=== PATIENT | male | born 1995 | race Caucasian/White ===

== ENCOUNTER → 2019-01-15 | Outpatient (CLI) | payer OTHER ==
--- NOTE | 2019-01-15 16:12 | US ---
EXAMINATION TYPE: US abdomen complete DATE OF EXAM: 01/15/2019 COMPARISON: US, CT CLINICAL HISTORY: R10.11 right upper quadrant pain. Patient stated for past 2 months has increasing e pigastric and paraumbilical pain, but had symptoms x 1 year, noted after appendectomy 2017. Umbilical hernia repair 2017. Patient is slender and 6'3". EXAM MEASUREMENTS: Liver Length: 19.8 cm Gallbladder Wall: 0.2 cm CBD: 0.3 cm Spleen: 11.8 x 11.3 x 4.8 cm Right Kidney: 14.1 x 5.1 x 3.8 cm Left Kidney: 13.4 x 5.1 x 5.8 cm Pancreas: wnl Liver: appearance iswnl, larger than 18.0cm for tall patient Gallbladder: small hyperechoic wall focus (wall polyp) = 0.1 x 0.2 x 0.1cm and is seen in multiple v iews. Evidence for sonographic Bhatti's sign: no CBD: wnl Spleen: size is wnl; accessory spleen(s) noted at hilum with more prominent = 0.9 x 0.9 x 1.0cm Right Kidney: No hydronephrosis or masses seen Left Kidney: No hydronephrosis or masses seen Upper IVC: wnl Abd Aorta: wnl The liver is homogenous. The intrahepatic portion of the IVC and proximal abdominal aorta are within normal limits. There is no evidence of cholelithiasis. Common bile duct is unremarkable. The visu alized portions of the pancreas are homogenous. Kidneys are symmetric and free of hydronephrosis. N o renal lesions are seen. IMPRESSION: 1. gallbladder polyp. 2. Liver is at the upper limits of normal.
== END | disposition home or self-care (01) ==
LOC: RADUSWWP 15:07
PROVIDERS: ATTEND Internal Medicine
DX: K82.4 Cholesterolosis of gallbladder (principal)
CPT/HCPCS: 76700

== ENCOUNTER → 2019-01-28 | Outpatient (CLI) | payer OTHER ==
--- NOTE | 2019-01-28 10:34 | NM ---
EXAMINATION TYPE: NM hepatobiliary w EF DATE OF EXAM: 01/28/2019 COMPARISON: Ultrasound abdomen 01/15/2019 HISTORY: Right upper quadrant pain TECHNIQUE: After the intravenous administration of 4.99 mCi Tc 99m Mebrofenin hepatobiliary scintigra phy is performed. Immediate images post injection. FINDINGS: There is satisfactory initial accumulation of tracer by the liver. The gallbladder is visualized wit hin 6 minutes. The small bowel activity is noted on delayed imaging. At one hour 8 ounces of oral e nsure plus is given to mimic CCK and gallbladder ejection fraction is calculated at 76 %, in the norm al range. Therefore there is no scintigraphic evidence of cystic or common bile duct obstruction to suggest acute cholecystitis or gallbladder dyskinesia. IMPRESSION: Exam is within normal limits.
== END | disposition home or self-care (01) ==
LOC: RADNMMAIN 06:43
PROVIDERS: ATTEND Internal Medicine
DX: R10.11 Right upper quadrant pain (principal)
CPT/HCPCS: 78226; A9537

== ENCOUNTER 2019-02-07 09:47 | Inpatient (IN) | payer OTHER ==
--- NOTE | 2019-02-07 10:29 | XR ---
EXAMINATION TYPE: XR chest 1V portable DATE OF EXAM: 02/07/2019 COMPARISON: None INDICATION: Pain left-sided chest TECHNIQUE: Single frontal view of the chest is obtained. FINDINGS: The heart size is normal. The pulmonary vasculature is normal. The lungs are clear. No pneumothorax is evident. Left costophrenic angle is excluded from the [id number]. IMPRESSION: 1. No acute pulmonary process.
--- NOTE | 2019-02-07 10:40 | ED ---
Chest Pain HPI <Nabor Diane - Last Filed: 02/07/19 12:50> - General Source: patient Mode of arrival: ambulatory Limitations: no limitations <Shalonda Cristina - Last Filed: 02/07/19 13:00> - General Chief Complaint: Chest Pain Stated Complaint: Chest pain Time Seen by Provider: 02/07/19 10:00 - History of Present Illness Initial Comments: 23-year-old male presenting for chest pain x one day. He states that yesterday afternoon while he is in the car he felt sudden onset of a sharp chest pain in the left side of the chest. He states it was near the lower aspect of the anterior chest. . Patient states at times the pain radiates towards the back. He states he recently was recently evaluated for abdominal pain and had a HIDA scan. Patient denies any current back pain. Patient states the chest pain is constant in that location. Denies pressure, radiation to jaw, or to the UE. He states that this pain increases with rotation of the trunk. Patient states that initially he thought it may have been due to back issues. 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 Patient denies fevers, denies history of CAD less than age 31. Patient denies DM, HTN, HLD. Patient is an everyday smoker. (Shalonda Cristina) - Related Data Home Medications Medication Instructions Recorded Confirmed Acetaminophen Tab [Tylenol Tab] 1,000 mg PO Q6HR PRN 01/01/15 02/07/19 Pedi Multivit No.25/Folic Acid 300 mcg PO DAILY 02/07/19 02/07/19 [Flintstones Multivit Chew Tab] Allergies Allergy/AdvReac Type Severity Reaction Status Date / Time No Known Allergies Allergy Verified 02/07/19 10:04 Review of Systems ROS Other: All systems not noted in ROS Statement are negative. <Nabor Diane - Last Filed: 02/07/19 12:50> ROS Other: All systems not noted in ROS Statement are negative. <Shalonda Cristina - Last Filed: 02/07/19 13:00> ROS Statement: Those systems with pertinent positive or pertinent negative responses have been documented in the HPI. EKG Findings - EKG Comments: EKG Findings:: Ventricular rate 52 bpm, DE interval 174 ms, QRS buddhist 88 ms, QT/QTC 426/396. This is sinus bradycardia. There is no ST elevation or depression. No abnormal T-wave inversion. EKG was interprettd by myself and was reviewed by my attending Dr. Diane <Shalonda Cristina - Last Filed: 02/07/19 13:00> Past Medical History Past Medical History: No Reported History History of Any Multi-Drug Resistant Organisms: None Reported Past Surgical History: Adenoidectomy, Appendectomy, Ear Surgery, Hernia Repair Additional Past Surgical History / Comment(s): both eyes turned in, had surgery at age 7 yrs to correct. Past Anesthesia/Blood Transfusion Reactions: No Reported Reaction Past Psychological History: No Psychological Hx Reported Smoking Status: Current every day smoker Past Alcohol Use History: None Reported Past Drug Use History: None Reported - Past Family History Mother Family Medical History: Fibromyalgia Additional Family Medical History / Comment(s): hypoglycemia, hysterectomy, Hashimotos. Maternal uncle, blood clot in leg Father Additional Family Medical History / Comment(s): Heathy. Paternal grandfather blood clot in leg. Paternal grandfather heart attack Sister(s) Additional Family Medical History / Comment(s): both sisters healthy <Shalonda Cristina - Last Filed: 02/07/19 13:00> General Exam Limitations: no limitations <Shalonda Cristina - Last Filed: 02/07/19 13:00> - General Exam Comments Initial Comments: General: The patient is awake and alert, in no distress Eye: Pupils are equal, round and reactive to light, extra-ocular movements are intact. No nystagmus. There is normal conjunctiva bilaterally. No signs of icterus. Ears, nose, mouth and throat: There are moist mucous membranes and no oral lesions. Neck: The neck is supple, there is no tenderness or JVD. Cardiovascular: There is a regular rate and rhythm. No murmur, or gallop is appreciated. Split S1, S2. Appreciable rub, that increases in a flat position. Less prominent in a 45 degree angle. Does not cease with holding of the breat. Respiratory: Lungs are clear to auscultation, respirations are non-labored, breath sounds are equal. No wheezes, stridor, rales, or rhonchi. Gastrointestinal: Soft, non-distended, non-tender abdomen without masses or organomegaly noted. There is no rebound or guarding present. Musculoskeletal: Normal ROM, no tenderness. Strength 5/5. Sensation intact. Radial adn DP pulses equal bilaterally 2+. Neurological: A&O x 3. CN II-XII intact, There are no obvious motor or sensory deficits. Coordination appears grossly intact. Speech is normal. Skin: Skin is warm and dry and no rashes or lesions are noted. No LE edema. Psychiatric: Cooperative, appropriate mood & affect, normal judgment. (Shalonda Cristina) Course <Shalonda Cristina - Last Filed: 02/07/19 13:00> Vital Signs 02/07/19 02/07/19 02/07/19 09:55 10:31 11:17 Temperature 97.9 F Pulse Rate 66 60 Pulse Rate [ 59 L Guest Relations Coordinator ] Respiratory 18 18 Rate Blood Pressure 136/76 122/75 O2 Sat by Pulse 100 99 Oximetry - Reevaluation(s) Reevaluation #1: Due to patient having an unusual heart sound (not obvious murmur or rub), Dr. Hudson was consulted by Dr. Diane who will come to the ER to evaluate patient and auscultate heart. Laboratory studies are unremarkable at this time.Patient continues to appears well. 02/07/19 12:38 (Shalonda Cristina) Chest Pain [facility] <Nabor Diane - Last Filed: 02/07/19 12:50> <Shalonda Cristina - Last Filed: 02/07/19 13:00> - [facility] Medical decision making; as asked to look at this 23-year-old male with a complaint of discomfort for approximately 2 days to his left lower lateral rib cage area. 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 Examination finds patient puts 2 fingers over the area of discomfort. He is able to push and reproduce the pain. No radiation of pain. It does increase with deep breathing but decreases with splinting. No evidence of rash or bruising at this time. Auscultation of the heart did show split heart sounds. Difficult to discern a rub while breathing, but this did increase lung sounds. I discussed costochondritis and pleuritic pain with the patient. EKG was reviewed showing no evidence of any acute irregularity. Labs are all normal including a normal d-dimer. Chest x-ray; 1 view was done , reviewed as negative by radiologist. A left rib series has been requested. CRP is pending. CRP is reported to be negative. The extra x-rays to rule out rib fracture was reported as negative for acute rib fracture by Dr. Christianson. He recommends repeat chest x-ray in 7-10 days if pain persists. It appears the patient has pain at the costochondral junction at approximately the ninth or 10th rib on the left side. Stability of pericarditis was discussed with the patient. On-call baker second was called and provided a bedside consultation. His impression is early pericarditis. Patient be admitted with echo in the morning. Dr. Diane (Nabor Diane) 23-year-old male presenting for sharp chest pain that began yesterday. Patient has abnormal rub on examination. Concerning for pericarditis there is no ST elevation or depression noted on EKG. Troponin negative. D-dimer negative. Chest x-ray within normal limits. There are no overt signs of heart failure on physical examination. Blood pressures are equal in the upper extremities bilaterally. Patient was evaluated bedside by cardiology recommended admission with the impression currently of pericarditis and recommended nonsteroidal anti- inflammatory medications, Protonix for GI upset and a routine echo inpatient. Patient is agreeable with this admission. (Shalonda Cristina) Disposition <Nabor Diane - Last Filed: 02/07/19 12:50> Is patient prescribed a controlled substance at d/c from ED?: No Time of Disposition: 12:45 Decision to Admit Reason: Admit from EC Decision Date: 02/07/19 Decision Time: 12:45 <Shalonda Cirstina - Last Filed: 02/07/19 13:00> Clinical Impression: Atypical chest pain, Pericarditis Disposition: ADMITTED IP TO THIS HOSP Condition: Stable Referrals: Flor Richards MD [Primary Care Provider] - 1-2 days
[2019-02-07 10:59] LABS: ALT 23 U/L (21-72); AST 16 U/L (17-59); African American GFR (CKD) >90 (>60 ml/min/1.73 sqM); Albumin 4.1 g/dL (3.5-5.0); Alkaline Phosphatase 49 U/L (38-126); Anion Gap 9 mmol/L; Blood Urea Nitrogen 11 mg/dL (9-20); Calcium 9.3 mg/dL (8.4-10.2); Carbon Dioxide 28 mmol/L (22-30); Chloride 105 mmol/L (98-107); Glucose 99 mg/dL (74-99); Non-African American GFR(CKD) >90 (>60 ml/min/1.73 sqM); Potassium 4.6 mmol/L (3.5-5.1); Sodium 142 mmol/L (137-145); Total Bilirubin 0.4 mg/dL (0.2-1.3); Total Protein 6.9 g/dL (6.3-8.2)
[2019-02-07 11:07] LABS: Basophils % (A) 0 %; Eosinophils # (A) 0.2 k/uL (0-0.7); Eosinophils % (A) 3 %; HCT 45.1 % (39.0-53.0); HGB 14.8 gm/dL (13.0-17.5); Lymphocytes # (A) 1.9 k/uL (1.0-4.8); Lymphocytes % (A) 23 %; MCH 32.8 pg (25.0-35.0); MCHC 32.9 g/dL (31.0-37.0); MCV 99.7 fL (80.0-100.0); Monocytes # (A) 0.4 k/uL (0-1.0); Monocytes % (A) 5 %; Neutrophils # (A) 5.6 k/uL (1.3-7.7); Neutrophils % (A) 68 %; Platelet Count 269 k/uL (150-450); RBC 4.52 m/uL (4.30-5.90); RDW 13.8 % (11.5-15.5); WBC 8.3 k/uL (3.8-10.6)
--- NOTE | 2019-02-07 11:55 | XR ---
EXAMINATION TYPE: XR ribs LT DATE OF EXAM: 02/07/2019 COMPARISON: None HISTORY: Left rib pain TECHNIQUE: Two-view left RIBS FINDINGS: No displaced fractures are evident. No pneumothorax is evident. IMPRESSION: 1. Normal left ribs. Follow-up can be performed 7-10 days from acute trauma for continued pain.
[2019-02-07] MEDS ORDERED: IBUPROFEN 600 MG TAB PO STA (12:47)
--- NOTE | 2019-02-07 12:58 | P.CRDCN ---
History of Present Illness Consult date: 02/07/19 Chief complaint: Chest pain History of present illness: This is a pleasant 23-year-old gentleman presented to the emergency room complaining of chest discomfort. He was in his usual state of health until last night when he started experiencing discomfort in the lower mid chest, described as a sharp kind of discomfort, without any radiation to the arm or neck or shoulders, and without any associated symptoms of shortness of breath, sweating, dizziness, or syncope. The patient stated clearly that the discomfort is worse if he lay flat in bed and better once he sits and lean forward. No associated symptoms of fever or chills. No nausea or vomiting. No recent history of upper respiratory infection. No contact with anybody who was sick or infected recently. 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 The patient is not aware of any prior congenital heart disease. On physical examination he does have pericardial rub and also split into second heart sounds. There is also ejection systolic murmur was noted. The chest x-ray and rib x-ray did not show any acute abnormalities. The EKG showed sinus rhythm without any ST or T-wave abnormalities consistent with pericarditis or ischemia. PE was ruled out by a normal d-dimer. The first set of troponin came in to be unremarkable. Past Medical History Past Medical History: No Reported History History of Any Multi-Drug Resistant Organisms: None Reported Past Surgical History: Adenoidectomy, Appendectomy, Ear Surgery, Hernia Repair Additional Past Surgical History / Comment(s): both eyes turned in, had surgery at age 7 yrs to correct. Past Anesthesia/Blood Transfusion Reactions: No Reported Reaction Past Psychological History: No Psychological Hx Reported Smoking Status: Current every day smoker Past Alcohol Use History: None Reported Past Drug Use History: None Reported - Past Family History Mother Family Medical History: Fibromyalgia Additional Family Medical History / Comment(s): hypoglycemia, hysterectomy, Hashimotos. Maternal uncle, blood clot in leg Father Additional Family Medical History / Comment(s): Heathy. Paternal grandfather blood clot in leg. Paternal grandfather heart attack Sister(s) Additional Family Medical History / Comment(s): both sisters healthy Medications and Allergies Home Medications Medication Instructions Recorded Confirmed Type Acetaminophen Tab [Tylenol Tab] 1,000 mg PO Q6HR PRN 01/01/15 02/07/19 History Pedi Multivit No.25/Folic Acid 300 mcg PO DAILY 02/07/19 02/07/19 History [Flintstones Multivit Chew Tab] Allergies Allergy/AdvReac Type Severity Reaction Status Date / Time No Known Allergies Allergy Verified 02/07/19 10:04 Physical Exam Vitals: Vital Signs Temp Pulse Pulse Resp BP Pulse Ox 02/07/19 11:17 60 18 122/75 99 02/07/19 10:31 59 L 02/07/19 09:55 97.9 F 66 18 136/76 100 Intake and Output 02/06/19 02/07/19 02/07/19 22:59 06:59 14:59 Other: Weight 81.647 kg - Constitutional General appearance: no acute distress - Respiratory Respiratory: bilateral: CTA - Cardiovascular Rhythm: regular Heart sounds: normal: S1, S2 Abnormal Heart Sounds: systolic murmur Results 02/07/19 10:24 02/07/19 10:24 Cardiac Enzymes 02/07/19 02/07/19 Range/Units 10:24 10:24 AST 16 L (17-59) U/L Troponin I <0.012 (0.000-0.034) ng/mL CBC 02/07/19 Range/Units 10:24 WBC 8.3 (3.8-10.6) k/uL RBC 4.52 (4.30-5.90) m/uL Hgb 14.8 (13.0-17.5) gm/dL Hct 45.1 (39.0-53.0) % Plt Count 269 (150-450) k/uL Comprehensive Metabolic Panel 02/07/19 Range/Units 10:24 Sodium 142 (137-145) mmol/L Potassium 4.6 (3.5-5.1) mmol/L Chloride 105 (98-107) mmol/L Carbon Dioxide 28 (22-30) mmol/L BUN 11 (9-20) mg/dL Creatinine 0.65 L (0.66-1.25) mg/dL Glucose 99 (74-99) mg/dL Calcium 9.3 (8.4-10.2) mg/dL AST 16 L (17-59) U/L ALT 23 (21-72) U/L Alkaline Phosphatase 49 (38-126) U/L Total Protein 6.9 (6.3-8.2) g/dL Albumin 4.1 (3.5-5.0) g/dL Current Medications Generic Name Dose Route Start Last Admin Trade Name Freq PRN Reason Stop Dose Admin Sodium Chloride 1,000 mls @ 20 mls/hr 02/07/19 13:00 Saline 0.9% IV .Q24H SANTIAGO Ibuprofen 600 mg 02/07/19 16:00 Motrin PO TID SANTIAGO Pantoprazole Sodium 40 mg 02/08/19 09:00 Protonix IVP DAILY SANTIAGO Intake and Output 02/06/19 02/07/19 02/07/19 22:59 06:59 14:59 Other: Weight 81.647 kg Patient Weight 02/08/19 06:59 Weight 81.647 kg 02/07/19 10:24 02/07/19 10:24 Assessment and Plan Assessment: Assessment #1 atypical/pleuritic chest discomfort consistent with likely pericarditis Plan #1 acute coronary syndrome and PE were ruled out #2 obtain a sed rate #3 start the patient on nonsteroid anti-inflammatory as well as colchicine as well as PPI #4 obtain an echocardiogram was Doppler #5 keep the patient for 24-hour observation. Thank you for allowing us participate in his care
[2019-02-07] MEDS ORDERED: SODIUM CHLORIDE 0.9% 1,000 ML IV SCH (13:00)
[2019-02-07 13:47] VITALS: BMI 23.3
[2019-02-07] MEDS ORDERED: ACETAMINOPHEN TAB 500 MG TAB PO PRN (14:07)
[2019-02-07] MEDS ORDERED: ALPRAZolam 0.25 MG TAB PO PRN (14:08)
[2019-02-07] MEDS ORDERED: HYDROmorphone 0.5 MG/0.5 ML SYRINGE IVP PRN (14:08)
[2019-02-07] MEDS ORDERED: TEMAZEPAM 15 MG CAP PO PRN (14:08)
--- NOTE | 2019-02-07 16:09 | HP ---
HISTORY AND PHYSICAL DATE OF SERVICE: 02/07/2019 CHIEF COMPLAINT: Chest pain. HISTORY OF PRESENT ILLNESS: This 23-year-old gentleman with a past medical history of no significant medical issues except adenoidectomy, appendectomy being followed by Dr. Richards in the outpatient setting comes in complaining of chest pain. The patient's chest pain since yesterday which are sharp in character, anterior part and left side of the chest which is increasing with respiration and the patient came to [facility] and admitted for evaluation and treatment. Followed by Dr. Richards in the outpatient setting. The patient had abdominal pain evaluation and HIDA scan also. Evaluation in the ER showed normal CBC and cardiology evaluation in progress. Rib x-ray is normal. EKG showed minimal ST changes and possibly pericarditis was also considered. There is no history of fever, rigors. No history of headache loss of conscious or seizures at this time. Pericardial rub was noted on exam. There is no history of fever or rigors. PAST MEDICAL HISTORY: History of appendectomy, adenoidectomy surgeries. MEDICATIONS: 1. Vitamins 1 p.o. daily. 2. Tylenol p.r.n. ALLERGIES: None. FAMILY HISTORY: History of fibromyalgia, hysterectomy, Sol's thyroiditis in family, DVT. SOCIAL HISTORY: History of smoking. No history of alcohol intake. REVIEW OF SYSTEMS: ENT: No diminished vision. No diminished hearing. CARDIOVASCULAR: As mentioned earlier. GI: No nausea. : No dysuria. NERVOUS SYSTEM: No numbness or weakness. ALLERGY/IMMUNOLOGY: No asthma or hayfever. MUSCULOSKELETAL: As mentioned earlier. HEMATOLOGY: No history of anemia. ENDOCRINE: No history of diabetes or hypothyroid. CONSTITUTIONAL: As mentioned earlier. DERMATOLOGY: Negative. RHEUMATOLOGY: Negative. PSYCHIATRIC: As mentioned earlier. PHYSICAL EXAMINATION: Alert and oriented x3. Pulse is 49, blood pressure 170/68, respiration 18, temperature 97.9, pulse ox 98% on room air. HEENT: Conjunctivae normal. NECK: No jugular venous distention. CARDIOVASCULAR: S1, S2 muffled. Possible pericardial rub present. RESPIRATORY: Breath sounds diminished in the bases. No rhonchi. No crackles. ABDOMEN: Soft, nontender. No mass palpable. LEGS: No edema, no swelling. NERVOUS SYSTEM: Higher function mentioned earlier. Moves all 4 limbs. No focal motor or sensory deficits. LYMPHATICS: No lymphadenopathy in the neck, axillae, groin. SKIN: No ulcer, rashes. JOINTS: No active deforming arthropathy. LABS: CBC within normal limits. Sodium 142, potassium 4.6, AST 16, lipase 14. ASSESSMENT: 1. Chest pain possibly pericarditis or pleural pericarditis. 2. History of appendectomy. 3. History of adenoidectomy. 4. History of nicotine dependence. RECOMMENDATIONS AND DISCUSSION: This is a 23-year-old gentleman who presented with multiple medical issues, we will monitor the patient closely. Symptomatic treatment will be provided. Otherwise, I would recommend a 2D echo with Doppler, cardiology consultation. Prognosis guarded because of multiple complex medical issues. Further recommendations to follow. See orders for details. Copy of this dictation is forwarded to Dr. Richards's office. RODNEY / STAN: [id number] /
[2019-02-07] MEDS: IBUPROFEN 600 MG TAB PO SCH ×2 (16:35→22:36)
[2019-02-07 17:51] LABS: Appearance,Urine Clear (Clear); Bilirubin,Urine Negative (Negative); Blood,Urine Negative (Negative); Color,Urine Yellow; Glucose,Urine (UA) Negative (Negative); Ketones,Urine Negative (Negative); Leukocyte Esterase,Urine Negative (Negative); Nitrite,Urine Negative (Negative); Protein,Urine Negative (Negative); Specific Gravity,Urine 1.013 (1.001-1.035); Urobilinogen,Urine <2.0 mg/dL (<2.0)
[2019-02-07 18:08] LABS: Amphetamine Screen,Urine Not Detected (NotDetected); Barbiturate Screen,Urine Not Detected (NotDetected); Benzodiazepines Screen,Urine Not Detected (NotDetected); Cocaine Screen,Urine Not Detected (NotDetected); Methadone Screen, Urine Not Detected (NotDetected); Opiate Screen,Urine Not Detected (NotDetected); Oxycodone Screen, Urine Not Detected (NotDetected); Phencyclidine Screen,Urine Not Detected (NotDetected); Tricyclic Antidepressant,Urine Not Detected (NotDetected); Urn Cannabinoid Scrn Detected (NotDetected)
[2019-02-07] MEDS: HYDROcodone/APAP 5-325MG 1 EACH TAB PO PRN (19:39)
[2019-02-08] MEDS: HYDROcodone/APAP 5-325MG 1 EACH TAB PO PRN (00:46)
[2019-02-08 07:03] LABS: Basophils % (A) 1 %; Eosinophils # (A) 0.2 k/uL (0-0.7); Eosinophils % (A) 3 %; HCT 41.6 % (39.0-53.0); HGB 13.7 gm/dL (13.0-17.5); Lymphocytes # (A) 1.8 k/uL (1.0-4.8); Lymphocytes % (A) 31 %; MCH 33.2 pg (25.0-35.0); MCV 100.8 fL (80.0-100.0); Mean Platelet Volume 6.9; Monocytes # (A) 0.4 k/uL (0-1.0); Monocytes % (A) 7 %; Neutrophils # (A) 3.3 k/uL (1.3-7.7); Neutrophils % (A) 56 %; Platelet Count 215 k/uL (150-450); RBC 4.13 m/uL (4.30-5.90); RDW 12.8 % (11.5-15.5); WBC 5.9 k/uL (3.8-10.6)
[2019-02-08 07:23] LABS: African American GFR (CKD) >90 (>60 ml/min/1.73 sqM); Anion Gap 5 mmol/L; Blood Urea Nitrogen 12 mg/dL (9-20); Calcium 8.9 mg/dL (8.4-10.2); Carbon Dioxide 29 mmol/L (22-30); Chloride 106 mmol/L (98-107); Glucose 94 mg/dL (74-99); Non-African American GFR(CKD) >90 (>60 ml/min/1.73 sqM); Potassium 4.3 mmol/L (3.5-5.1); Sodium 140 mmol/L (137-145)
[2019-02-08 07:33] VITALS: PULSE 47; RESP 17
[2019-02-08] MEDS ORDERED: MULTIVITAMINS, PEDIATRIC 1 EACH CHEWABLE PO SCH (09:00)
[2019-02-08] MEDS ORDERED: PANTOPRAZOLE 40 MG/10 ML VIAL IVP SCH (09:00)
[2019-02-08] MEDS ORDERED: COLCHICINE 0.6 MG EACH PO SCH (10:15)
--- NOTE | 2019-02-08 10:54 | P.PN ---
Subjective This is a pleasant 23-year-old male with no significant previous medical history other than chronic daily nicotine dependence. He continues to experience discomfort in the left precordial region described as sharp with no radiation. He has been started on anti-inflammatory regimen and states this is not relieving his pain at all. He is seen and examined resting comfortably lying flat in bed in no acute distress. Laboratory data reviewed, WBC 5.9, hemoglobin 13.7, platelets 215, ESR 3, sodium 140, potassium 4.3, creatinine 0.75, C-reactive protein less than 5, cardiac enzymes negative 1. Blood pressure 100/65 heart rate 47 afebrile maintaining oxygen saturation on room air. Currently maintained on ibuprofen 600 mg 3 times a day and Protonix 40 mg daily. GENERAL: Well-appearing, well-nourished and in no acute distress. NECK: Supple without JVD or thyromegaly. LUNGS: Breath sounds clear to auscultation bilaterally. Respiration equal and unlabored. No wheezes, rales or rhonchi. HEART: Regular rate and rhythm without murmurs, rubs or gallops. S1 and S2 heard. EXTREMITIES: Normal range of motion, no edema. No clubbing or cyanosis. Peripheral pulses intact. ASSESSMENT Acute pericarditis Chronic nicotine dependence PLAN Change from ibuprofen to colchicine 0.6 mg BID. Will follow up with echo prior to discharge. Follow up with Dr. Palomino in 2 weeks. Nurse Practitioner note has been reviewed, I agree with a documented findings and plan of care. Patient was seen and examined. Objective - Vital Signs Vital signs: Vital Signs Temp 97.7 F 02/08/19 07:32 Pulse 47 L 02/08/19 07:32 Resp 17 02/08/19 07:32 BP 100/65 02/08/19 07:32 Pulse Ox 99 02/08/19 07:32 Intake & Output 02/07/19 02/08/19 02/08/19 18:59 06:59 18:59 Intake Total 240 200 Output Total 200 Balance 40 200 Weight 81.647 kg Intake: Oral 240 200 Output: Urine 200 Other: Voiding Method Toilet Toilet # Voids 1 - Labs CBC & Chem 7: 02/08/19 06:47 02/08/19 06:47 Labs: Abnormal Lab Results - Last 24 Hours (Table) 02/07/19 02/07/1902/08/19 Range/Units 10:24 17:45 06:47 RBC 4.13 L (4.30-5.90) m/uL MCV 100.8 H (80.0-100.0) fL Creatinine 0.65 L (0.66-1.25) mg/dL AST 16 L (17-59) U/L Lipase 14 L (23-300) U/L U Marijuana (THC) Screen Detected H (NotDetected)
[2019-02-08 11:53] VITALS: BP 109/71; TEMP 98
--- NOTE | 2019-02-08 15:03 | ECHOF ---
Referral Reason:cp MEASUREMENTS -------- HEIGHT: 190.5 cm WEIGHT: 81.6 kg BP: 100/65 IVSd: 1.0 cm (0.6 - 1.1) LVIDd: 4.9 cm (3.9 - 5.3) LVPWd: 1.0 cm (0.6 - 1.1) IVSs: 1.2 cm LVIDs: 3.2 cm LVPWs: 1.4 cm RVIDd: 3.5 cm (< 3.3) LAESV Index (A-L): 36.51 ml/m Ao Diam: 3.7 cm (2.0 - 3.7) LA Diam: 3.4 cm (2.7 - 3.8) AV Cusp: 2.8 cm (1.5 - 2.6) EPSS: 0.5 cm MV E Curly: 1.24 m/s MV DecT: 202 ms MV A Curly: 0.32 m/s MV E/A Ratio: 3.90 RAP: 10.00* mmHg RVSP: 36.12 mmHg MV EF SLOPE: 149.20 mm/s (70 - 150) MV EXCURSION: 1.33 cm (> 18.000) FINDINGS -------- Resting bradycardia (HR<60bpm). This was a technically adequate study. The left ventricular size is normal. Left ventricular wall thickness is normal. Overall left vent ricular systolic function is normal with, an EF between 55 - 60 %. The diastolic filling pattern is normal for the age of the patient. The right ventricle is mildly enlarged. Left atrium is moderately dilated by volume. The right atrial size is normal. Interatrial and interventricular septum intact. The aortic valve is trileaflet and appears structurally normal. There is no evidence of aortic regu rgitation. There is no evidence of aortic stenosis. The mitral valve is normal. Moderate mitral regurgitation is present. Mild tricuspid regurgitation present. There is mild pulmonary hypertension. The right ventricular systolic pressure, as measured by Doppler, is 36.12mmHg. There is no pulmonic regurgitation present. The aortic root size is normal. The inferior vena cava is moderately dilated. There is no pericardial effusion. The pericardium appears to be thickened. pROMINENT ANTERIOR AND P OSTERIOR PERICARDIAL STRIPE CONCLUSIONS -------- 1. Resting bradycardia (HR<60bpm). 2. This was a technically adequate study. 3. The left ventricular size is normal. 4. Left ventricular wall thickness is normal. 5. Overall left ventricular systolic function is normal with, an EF between 55 - 60 %. 6. The diastolic filling pattern is normal for the age of the patient. 7. The right ventricle is mildly enlarged. 8. Left atrium is moderately dilated by volume. 9. The right atrial size is normal. 10. Interatrial and interventricular septum intact. 11. The aortic valve is trileaflet and appears structurally normal. 12. There is no evidence of aortic regurgitation. 13. There is no evidence of aortic stenosis. 14. The mitral valve is normal. 15. Moderate mitral regurgitation is present. 16. Mild tricuspid regurgitation present. 17. There is mild pulmonary hypertension. 18. The right ventricular systolic pressure, as measured by Doppler, is 36.12mmHg. 19. There is no pulmonic regurgitation present. 20. The aortic root size is normal. 21. The inferior vena cava is moderately dilated. 22. There is no pericardial effusion. 23. The pericardium appears to be thickened. GREASE MACHINE WORKER: Dalia Angel RDCS
--- NOTE | 2019-02-09 00:04 | DS ---
DISCHARGE SUMMARY FINAL DIAGNOSES: 1. Chest pain, possible acute pericarditis. 2. History of appendectomy. 3. History of adenoidectomy. 4. History of nicotine abuse. DISCHARGE DISPOSITION: The patient will be discharged in stable condition with guarded prognosis. HISTORY OF PRESENT ILLNESS: This 23-year-old gentleman with a past medical history of multiple medical problems was admitted with history of chest pain, being followed by Dr. Richards in the outpatient setting, was thought to have acute pericarditis. A 2D echo showed no evidence of any pericardial effusion. The pericardium appears to be thickened. On exam, vitals signs are stable. Cardiovascular: S1, S2. Abdomen soft. Nervous System: No focal deficits. DISCHARGE ADVICE AND MEDICATIONS: 1. Discharge diet is cardiac diet. 2. Activity limited until followup. 3. Follow up with Dr. Richards in 2-3 days. 4. Follow up with Dr. Palomino as recommended. DISCHARGE MEDICATIONS: 1. Colchicine 0.6 p.o. b.i.d. for 1 week. 2. Tylenol p.r.n. 3. Multivitamins 1 p.o. daily. Once again, patient being discharged in a stable condition with guarded prognosis. MMODL / IJN: [id number] /
== END 2019-02-08 15:38 | disposition home or self-care (01) | DRG 316 ==
LOC: EC 09:47 → 1SOBS 12:51 → OBSVTOIN 02-08 09:37
PROVIDERS: ADMIT Hospitalist; ATTEND Hospitalist
DX: I30.9 Acute pericarditis, unspecified (principal); F17.200 Nicotine dependence, unspecified, uncomplicated; Z79.899 Other long term (current) drug therapy; Z82.49 Family history of ischemic heart disease and other diseases of the circulatory system; Z90.49 Acquired absence of other specified parts of digestive tract; Z90.89 Acquired absence of other organs; Z98.890 Other specified postprocedural states; Z83.49 Family history of other endocrine, nutritional and metabolic diseases
CPT/HCPCS: 36415; 71045; 80048; 80053; 80306; 81003; 83690; 84484; 85025; 85379; 85652; 86140; 86658; 93005; 93306; 99285

== ENCOUNTER 2020-08-25 00:16 | Emergency (ER) | payer OTHER ==
--- NOTE | 2020-08-25 00:58 | XR ---
EXAM: XR Chest, 2 Views CLINICAL HISTORY: ITS.REASON XR Reason: Chest pain TECHNIQUE: Frontal and lateral views of the chest. COMPARISON: February 07, 2019 FINDINGS: Lungs: Unremarkable. No consolidation. Pleural space: Unremarkable. No pneumothorax. Heart: Unremarkable. No cardiomegaly. Mediastinum: Unremarkable. Bones/joints: Unremarkable. IMPRESSION: Normal chest x-rays.
--- NOTE | 2020-08-25 01:26 | ED ---
General Adult HPI - General Chief complaint: Chest Pain Stated complaint: Chest Pain, Leg pain Time Seen by Provider: 08/25/20 00:22 Source: patient, family Mode of arrival: ambulatory Limitations: no limitations - History of Present Illness Initial comments: 24-year-old male patient with past medical history significant for pericarditis presents to the emergency department today for evaluation of left leg pain and cramping as well as intermittent chest pain. Patient states his been having pain to the leg intermittently over the last week. States the pain worsens at rest and gets better with movement. States the pain is pretty constant today and worse over his left calf. States he has intermittent swelling to the left knee. Denies any known injury. States his chest pain started today. States there are sharp stabbing pains the last just for a few seconds. States this happens several times at the day today. Denies any shortness of breath. Denies any increased pain with breathing. Denies dizziness or weakness. Denies nausea or vomiting. Denies any abdominal pain. Patient states he does have a family history of blood clot he is very concerned this is going out of the left leg. He denies any recent long car rides. Denies hormonal medication use. Denies personal history of blood clot. Patient denies any recent rash, fever, chills, cough, abdominal pain, nausea, vomiting, diarrhea, constipation, back pain, numbness, tingling, hematuria, dysuria, urinary urgency, urinary frequency, headache, visual changes, or any other complaints. - Related Data Home Medications Medication Instructions Recorded Confirmed Acetaminophen Tab [Tylenol] 1,000 mg PO Q6HR PRN 01/01/15 02/07/19 Pedi Multivit No.25/Folic Acid 300 mcg PO DAILY 02/07/19 02/07/19 [Flintstones Multivit Chew Tab] Previous Rx's Medication Instructions Recorded Colchicine [Colcrys] 0.6 mg PO BID #14 each 02/08/19 Allergies Allergy/AdvReac Type Severity Reaction Status Date / Time No Known Allergies Allergy Verified 08/25/20 00:21 Review of Systems ROS Statement: Those systems with pertinent positive or pertinent negative responses have been documented in the HPI. ROS Other: All systems not noted in ROS Statement are negative. Past Medical History Past Medical History: No Reported History Additional Past Medical History / Comment(s): pericarditis History of Any Multi-Drug Resistant Organisms: None Reported Past Surgical History: Adenoidectomy, Appendectomy, Ear Surgery, Hernia Repair Additional Past Surgical History / Comment(s): both eyes turned in, had surgery at age 7 yrs to correct. Past Anesthesia/Blood Transfusion Reactions: No Reported Reaction Past Psychological History: No Psychological Hx Reported Smoking Status: Never smoker Past Alcohol Use History: None Reported Past Drug Use History: None Reported - Past Family History Mother Family Medical History: Fibromyalgia Additional Family Medical History / Comment(s): hypoglycemia, hysterectomy, Hashimotos. Maternal uncle, blood clot in leg Father Additional Family Medical History / Comment(s): Heathy. Paternal grandfather blood clot in leg. Paternal grandfather heart attack Sister(s) Additional Family Medical History / Comment(s): both sisters healthy General Exam Limitations: no limitations General appearance: alert, in no apparent distress, other (This is a well- developed, well-nourished adult male patient in no acute distress. Vital signs upon presentation are temperature 97.6F, pulse 60, respirations 22, blood pressure 149/73, pulse ox 98% on room air.) Respiratory exam: Present: normal lung sounds bilaterally. Absent: respiratory distress, wheezes, rales, rhonchi, stridor Cardiovascular Exam: Present: regular rate, normal rhythm, normal heart sounds. Absent: systolic murmur, diastolic murmur, rubs, gallop, clicks GI/Abdominal exam: Present: soft, normal bowel sounds. Absent: distended, tenderness, guarding, rebound, rigid Extremities exam: Present: normal inspection, full ROM, normal capillary refill, other (Skin to the left leg is pink, warm, dry. Cap refill less than 3 seconds. Pedal and posttibial pulses are 2+ and equal bilaterally.). Absent: tenderness, pedal edema, joint swelling, calf tenderness Neurological exam: Present: alert, oriented X3, CN II-XII intact Psychiatric exam: Present: normal affect, normal mood Skin exam: Present: warm, dry, intact, normal color. Absent: rash Course Vital Signs 08/25/20 00:17 Temperature 97.6 F Pulse Rate 60 Respiratory 22 Rate Blood Pressure 149/73 O2 Sat by Pulse 98 Oximetry EKG Findings - EKG Comments: EKG Findings:: EKG obtained at 00 33 shows sinus bradycardia with a ventricular rate of 58, P return of a 156, QRS duration 96, QT 424, QTC 416. No evidence of ST elevation or depression. Medical Decision Making - Medical Decision Making 24-year-old male patient presents to the emergency department today for evaluation of left leg pain and cramping over the calf, foot, left hip. Also reporting intermittent sharp chest pains lasting a few seconds at a time. Neurovascular status was intact. Leg appears normal. Pedal and posttibial pulses. Chest x-ray is negative. I did discuss signs and results with the patient. Be discharged pop his primary care physician for recheck in 1-2 days. He verbalizes understanding and agrees with this plan. Case discussed with my attending Dr. Cantrell. - Radiology Data Radiology results: report reviewed, image reviewed Two-view x-ray of the chest is obtained. Report is reviewed in its entirety. Impression by Dr. Saxena shows normal chest x-rays. Ultrasound of the left lower extremity was obtained. Report was reviewed in its entirety. Impression by Dr. Saxena shows normal left lower extremity duplex venous ultrasound. Disposition Clinical Impression: Left leg pain, Chest pain Disposition: HOME SELF-CARE Condition: Good Instructions (If sedation given, give patient instructions): Chest Pain (ED), Leg Cramps (ED) Additional Instructions: Follow-up with her primary care physician for recheck in 1-2 days. Return to the emergency department for any new, worsening, or concerning symptoms. Is patient prescribed a controlled substance at d/c from ED?: No Referrals: Flor Richards MD [Primary Care Provider] - 1-2 days Time of Disposition: 01:37
--- NOTE | 2020-08-25 01:32 | US ---
EXAM: US Duplex Left Lower Extremity Veins CLINICAL HISTORY: ITS.REASON US Reason: Leg pain, cramping TECHNIQUE: Real-time duplex ultrasound scan of the left lower extremity veins integrating B-mode two-dimensional vascular structure, Doppler spectral analysis, color flow Doppler imaging and compression. COMPARISON: No relevant prior studies available. FINDINGS: Deep veins: Unremarkable. No DVT in the visualized common femoral, femoral, proximal deep femoral or popliteal veins. The veins demonstrate normal color flow, are normally compressible, with normal phasic flow and/or augmentation response. Superficial veins: Unremarkable. No thrombus in the visualized great saphenous vein. Soft tissues: No acute findings. No popliteal cyst. IMPRESSION: Normal left lower extremity duplex venous ultrasound.
[2020-08-25 02:18] VITALS: BP 134/91; PULSE 82; RESP 18; TEMP 97.7
== END 2020-08-25 02:05 | disposition home or self-care (01) ==
LOC: EC 00:16
DX: R07.9 Chest pain, unspecified (principal); M79.662 Pain in left lower leg; Z90.49 Acquired absence of other specified parts of digestive tract; Z90.89 Acquired absence of other organs
CPT/HCPCS: 71046; 93005; 99285

== ENCOUNTER 2024-01-08 13:59 | Emergency (ER) | payer OTHER ==
[2024-01-08 14:11] VITALS: TEMP 97.2
--- NOTE | 2024-01-08 14:40 | ED ---
General Adult HPI - General Chief complaint: Abdominal Pain Stated complaint: L Rib Pain Time Seen by Provider: 01/08/24 14:38 Source: patient, RN notes reviewed Mode of arrival: ambulatory Limitations: no limitations - History of Present Illness Initial comments: 28-year-old male presented to ER with a chief complaint of left-sided rib pain. Patient states he was leaning over a truck bed 2 days ago and heard a "pop". He states since then he has been experiencing left-sided rib pain worse with inspiration and laying flat. He does report mild shortness of breath and feeling like he cannot take a deep breath due to the pain. He denies any chest pain, abdominal pain or other complaints. - Related Data Home Medications Medication Instructions Recorded Confirmed Acetaminophen Tab [Tylenol] 1,000 mg PO Q6HR PRN 01/01/15 02/07/19 Pedi Multivit No.25/Folic Acid 300 mcg PO DAILY 02/07/19 02/07/19 [Flintstones Multivit Chew Tab] Previous Rx's Medication Instructions Recorded Colchicine [Colcrys] 0.6 mg PO BID #14 each 02/08/19 Lidocaine 5% Patch [Lidoderm] 1 patch TOPICAL DAILY #30 patch 01/08/24 Allergies Allergy/AdvReac Type Severity Reaction Status Date / Time No Known Allergies Allergy Verified 01/08/24 14:09 Review of Systems ROS Statement: Those systems with pertinent positive or pertinent negative responses have been documented in the HPI. ROS Other: All systems not noted in ROS Statement are negative. Past Medical History Past Medical History: No Reported History Additional Past Medical History / Comment(s): pericarditis History of Any Multi-Drug Resistant Organisms: None Reported Past Surgical History: Adenoidectomy, Appendectomy, Ear Surgery, Hernia Repair Additional Past Surgical History / Comment(s): both eyes turned in, had surgery at age 7 yrs to correct. Past Anesthesia/Blood Transfusion Reactions: No Reported Reaction Past Psychological History: No Psychological Hx Reported Smoking Status: Never smoker Past Alcohol Use History: None Reported Past Drug Use History: None Reported - Past Family History Mother Family Medical History: Fibromyalgia Additional Family Medical History / Comment(s): hypoglycemia, hysterectomy, Hashimotos. Maternal uncle, blood clot in leg Father Additional Family Medical History / Comment(s): Heathy. Paternal grandfather blood clot in leg. Paternal grandfather heart attack Sister(s) Additional Family Medical History / Comment(s): both sisters healthy General Exam Limitations: no limitations General appearance: alert, in no apparent distress Respiratory exam: Present: normal lung sounds bilaterally, chest wall tenderness (Left anterior ribs. Symmetrical wall motion with inspiration and expiration. No erythema, bruising, wounds or rashes.). Absent: respiratory distress, wheezes, rales, rhonchi, stridor Cardiovascular Exam: Present: regular rate, normal rhythm, normal heart sounds. Absent: systolic murmur, diastolic murmur, rubs, gallop, clicks Skin exam: Present: warm, dry, intact, normal color. Absent: rash Course Vital Signs 01/08/24 01/08/24 14:09 15:59 Temperature 97.2 F L Pulse Rate 50 L 80 Respiratory 16 18 Rate Blood Pressure 158/79 136/78 O2 Sat by Pulse 99 98 Oximetry Medical Decision Making - Medical Decision Making Was pt. sent in by a medical professional or institution (, PA, HARDWARE DEVELOPER, urgent care, hospital, or residential...) When possible be specific @ -No Did you speak to anyone other than the patient for history (EMS, parent, family, police, friend...)? What history was obtained from this source @ -No Did you review nursing and triage notes (agree or disagree)? Why? @ -I reviewed and agree with nursing and triage notes Were old charts reviewed (outside hosp., previous admission, EMS record, old EKG, old radiological studies, urgent care reports/EKG's, residential records)? Report findings @ -No old charts were reviewed Differential Diagnosis (chest pain, altered mental status, abdominal pain women, abdominal pain men, vaginal bleeding, weakness, fever, dyspnea, syncope, headache, dizziness, GI bleed, back pain, seizure, CVA, palpatations, mental health, musculoskeletal)? @ -Differential Musculoskeletal: Muscular strain, contusion, ligament sprain, fracture, arthritis, septic arthritis, bursitis, cellulitis, muscle spasm, nerve compression, DVT, arterial occlusion, herpes zoster, electrolyte abnormality, tumor.... This is not meant to be in all inclusive list EKG interpreted by me (3pts min.). @ -None X-rays interpreted by me (1pt min.). @ -Left ribs AP chest x-ray interpreted by me negative for acute process. CT interpreted by me (1pt min.). @ -None done U/S interpreted by me (1pt. min.). @ -None done What testing was considered but not performed or refused? (CT, X-rays, U/S, labs)? Why? @ -None What meds were considered but not given or refused? Why? @ -None Did you discuss the management of the patient with other professionals (geraldine dela cruz i.eJustine Merrill, PA, HARDWARE DEVELOPER, lab, RT, psych nurse, social work associate, edge bander operator, teacher, preventive medicine officer, case specialist)? Give summary @ -No Was smoking cessation discussed for >3mins.? @ -No Was critical care preformed (if so, how long)? @ -No Were there social determinants of health that impacted care today? How? (Homelessness, low income, unemployed, alcoholism, drug addiction, transportation, low edu. Level, literacy, decrease access to med. care, residential, rehab)? @ -No Was there de-escalation of care discussed even if they declined (Discuss DNR or withdrawal of care, Hospice)? DNR status @ -No What co-morbidities impacted this encounter? (DM, HTN, Smoking, COPD, CAD, Cancer, CVA, ARF, Chemo, Hep., AIDS, mental health diagnosis, sleep apnea, morbid obesity)? @ -None Was patient admitted / discharged? Hospital course, mention meds given and route, prescriptions, significant lab abnormalities, going to OR and other pertinent info. @ -Discharge. 28-year-old male presented to ER with a chief complaint of left sided rib pain. History and physical exam completed. Vitals stable. Patient in no signs of acute distress and nontoxic-appearing. Tenderness to palpation of left ribs. Symmetrical chest wall movements with inspiration and expiration with no evidence of flail chest. No erythema, bruising, wounds or rashes present. X-rays obtained negative for acute process. Patient received IM Toradol for pain control in the ER. Upon reevaluation, patient resting comfortably in exam room in no signs of acute distress. Results discussed with patient, all questions answered. Lidocaine patches prescribed, first placed in the ER. Advise close follow-up with PCP. Patient discharged with an incentive spirometer and encouraged to take deep breaths regularly. Return parameters discussed. Patient discharged in stable condition. Patient verbally expressed understanding and agreement with care plan. Case discussed with ED attending, Dr. Paul. Undiagnosed new problem with uncertain prognosis? @ -No Drug Therapy requiring intensive monitoring for toxicity (Heparin, Nitro, Insulin, Cardizem)? @ -No Were any procedures done? @ -No Diagnosis/symptom? @ -Rib contusion Acute, or Chronic, or Acute on Chronic? @ -Acute Uncomplicated (without systemic symptoms) or Complicated (systemic symptoms)? @ -Uncomplicated Side effects of treatment? @ -No Exacerbation, Progression, or Severe Exacerbation? @ -No Poses a threat to life or bodily function? How? (Chest pain, [place], [place], pneumonia, PE, COPD, DKA, ARF, appy, cholecystitis, CVA, Diverticulitis, Homicidal, Suicidal, threat to staff... and all critical care pts) @ -No - Radiology Data Radiology results: report reviewed, image reviewed Disposition Clinical Impression: Rib contusion Disposition: HOME SELF-CARE Condition: Stable Instructions (If sedation given, give patient instructions): How to Use an Incentive Spirometer (ED), Rib Contusion (ED) Additional Instructions: Use incentive spirometer hourly. I advise you to take deep breaths frequently. You may take [id number] Tylenol and Motrin for pain control. Follow-up with PCP. Return to the ER for any new or worsening concerns. Prescriptions: Lidocaine 5% Patch [Lidoderm] 1 patch TOPICAL DAILY #30 patch Is patient prescribed a controlled substance at d/c from ED?: No Referrals: Flor Richards MD [Primary Care Provider] - 1-2 days Time of Disposition: 15:51
[2024-01-08] MEDS: KETOROLAC 15 MG/ML 1 ML VIAL IM STA (14:48)
--- NOTE | 2024-01-08 15:32 | XR ---
EXAMINATION TYPE: XR ribs LT w pa chest xray DATE OF EXAM: 01/08/2024 3:23 PM CLINICAL INDICATION:Male, 28 years old with history of pain; [facility] COMPARISON: 08/25/2020 TECHNIQUE: XR ribs LT w pa chest xray; Frontal and oblique views of the ribs with frontal chest radio graph. FINDINGS: The ribs have a normal appearance. No evidence of fracture. Overall, the lungs are clear. The cardiac silhouette is normal in size. The remaining osseous structures are intact. IMPRESSION: No acute osseous pathology.
[2024-01-08] MEDS: LIDOCAINE 4% PATCH TOPICAL ONE (15:56)
[2024-01-08 16:00] VITALS: BP 136/78; PULSE 80; RESP 18
== END 2024-01-08 16:00 | disposition home or self-care (01) ==
LOC: EC 13:59
DX: S20.219A Contusion of unspecified front wall of thorax, initial encounter (principal); X50.9XXA Other and unspecified overexertion or strenuous movements or postures, initial encounter
CPT/HCPCS: 71101; 99284; 96372; J1885

== ENCOUNTER 2024-10-24 17:40 | Emergency (ER) | payer OTHER ==
--- NOTE | 2024-10-24 19:33 | ED ---
General Adult HPI - General Chief complaint: ENT Stated complaint: something stuck in throat Time Seen by Provider: 10/24/24 19:11 Source: patient, RN notes reviewed Mode of arrival: ambulatory Limitations: no limitations - History of Present Illness Initial comments: Patient is a 28-year-old male present to the emergency department with concerns for throat pain. Patient states it feels somewhat like there is something stuck in his throat. Patient states he did have congestion and drainage however that has resolved. Symptoms of throat discomfort have been 2 days now. No dyspnea. Discomfort does increase with swallowing and lying down. - Related Data Home Medications Medication Instructions Recorded Confirmed Acetaminophen Tab [Tylenol] 1,000 mg PO Q6HR PRN 01/01/15 02/07/19 Pedi Multivit No.25/Folic Acid 300 mcg PO DAILY 02/07/19 02/07/19 [Flintstones Multivit Chew Tab] Previous Rx's Medication Instructions Recorded Colchicine [Colcrys] 0.6 mg PO BID #14 each 02/08/19 Lidocaine 5% Patch [Lidoderm] 1 patch TOPICAL DAILY #30 patch 01/08/24 Sucralfate [Carafate] 1 gm PO ACHS #300 ml 10/24/24 Allergies Allergy/AdvReac Type Severity Reaction Status Date / Time No Known Allergies Allergy Verified 10/24/24 18:06 Review of Systems ROS Statement: Those systems with pertinent positive or pertinent negative responses have been documented in the HPI. ROS Other: All systems not noted in ROS Statement are negative. Constitutional: Denies: fever ENT: Reports: throat pain, congestion Respiratory: Denies: cough Cardiovascular: Denies: chest pain Endocrine: Denies: fatigue Gastrointestinal: Denies: abdominal pain Genitourinary: Denies: dysuria Musculoskeletal: Denies: back pain Past Medical History Past Medical History: No Reported History Additional Past Medical History / Comment(s): pericarditis History of Any Multi-Drug Resistant Organisms: None Reported Past Surgical History: Adenoidectomy, Appendectomy, Ear Surgery, Hernia Repair Additional Past Surgical History / Comment(s): both eyes turned in, had surgery at age 7 yrs to correct. Past Anesthesia/Blood Transfusion Reactions: No Reported Reaction Past Psychological History: No Psychological Hx Reported Smoking Status: Never smoker Past Alcohol Use History: None Reported Past Drug Use History: None Reported - Past Family History Mother Family Medical History: Fibromyalgia Additional Family Medical History / Comment(s): hypoglycemia, hysterectomy, Hashimotos. Maternal uncle, blood clot in leg Father Additional Family Medical History / Comment(s): Heathy. Paternal grandfather blood clot in leg. Paternal grandfather heart attack Sister(s) Additional Family Medical History / Comment(s): both sisters healthy General Exam Limitations: no limitations General appearance: alert, in no apparent distress Head exam: Present: normocephalic Eye exam: Present: normal appearance ENT exam: Present: other (Mild pharyngeal erythema) Neck exam: Present: lymphadenopathy (With mild tenderness) Respiratory exam: Present: normal lung sounds bilaterally Cardiovascular Exam: Present: regular rate, normal rhythm GI/Abdominal exam: Present: soft. Absent: tenderness Extremities exam: Present: normal inspection Neurological exam: Present: alert Psychiatric exam: Present: normal affect, normal mood Skin exam: Present: normal color Course Vital Signs 10/24/24 18:01 Temperature 98.1 F Pulse Rate 57 L Respiratory 17 Rate Blood Pressure 150/82 O2 Sat by Pulse 99 Oximetry Medical Decision Making - Medical Decision Making Was pt. sent in by a medical professional or institution (, PA, RAG CUTTING MACHINE TENDER, urgent care, hospital, or senior care...) When possible be specific @ -No Did you speak to anyone other than the patient for history (EMS, parent, family, police, friend...)? What history was obtained from this source @ -No Did you review nursing and triage notes (agree or disagree)? Why? @ -I reviewed and agree with nursing and triage notes Were old charts reviewed (outside hosp., previous admission, EMS record, old EKG, old radiological studies, urgent care reports/EKG's, senior care records)? Report findings @ -No old charts were reviewed Differential Diagnosis (chest pain, altered mental status, abdominal pain women, abdominal pain men, vaginal bleeding, weakness, fever, dyspnea, syncope, headache, dizziness, GI bleed, back pain, seizure, CVA, palpatations, mental health, musculoskeletal)? @ -Differential Fever: Pneumonia, viral URI, endocarditis, myocarditis, pericarditis, otitis, sinusitis, peritonsillar Abscess, retropharyngeal Abscess, epiglottitis, peritonitis, appendicitis, Keyla cystitis, diverticulitis, hepatitis, colitis, UTI, PID, TOA, pyelonephritis, prostatitis, epididymitis, meningitis, encephalitis, pulmonary embolism, CVA, thyroid storm, pancreatitis, adrenal crisis, cavernous sinus thrombosis, this is not meant to be an all-inclusive list. EKG interpreted by me (3pts min.). @ -As above X-rays interpreted by me (1pt min.). @ -X-ray soft tissue neck without acute abnormality CT interpreted by me (1pt min.). @ -None done U/S interpreted by me (1pt. min.). @ -None done What testing was considered but not performed or refused? (CT, X-rays, U/S, labs)? Why? @ -None What meds were considered but not given or refused? Why? @ -None Did you discuss the management of the patient with other professionals (professionals i.e. , PA, RAG CUTTING MACHINE TENDER, lab, RT, psych nurse, psych social worker, data warehouse developer, teacher, aoc plans intelligence officer, disease case manager)? Give summary @ -No Was smoking cessation discussed for >3mins.? @ -No Was critical care preformed (if so, how long)? @ -No Were there social determinants of health that impacted care today? How? (Homelessness, low income, unemployed, alcoholism, drug addiction, transportation, low edu. Level, literacy, decrease access to med. care, snf, rehab)? @ -No Was there de-escalation of care discussed even if they declined (Discuss DNR or withdrawal of care, Hospice)? DNR status @ -No What co-morbidities impacted this encounter? (DM, HTN, Smoking, COPD, CAD, Cancer, CVA, ARF, Chemo, Hep., AIDS, mental health diagnosis, sleep apnea, morbid obesity)? @ -None Was patient admitted / discharged? Hospital course, mention meds given and route, prescriptions, significant lab abnormalities, going to OR and other pertinent info. @ -Patient presents with throat discomfort. X-ray and strep test negative. Patient will be discharged with Decadron and Carafate. Patient updated Undiagnosed new problem with uncertain prognosis? @ -No Drug Therapy requiring intensive monitoring for toxicity (Heparin, Nitro, Insulin, Cardizem)? @ -No Were any procedures done? @ -No Diagnosis/symptom? @ -Throat pain Acute, or Chronic, or Acute on Chronic? @ -Acute Uncomplicated (without systemic symptoms) or Complicated (systemic symptoms)? @ -Default Side effects of treatment? @ -No Exacerbation, Progression, or Severe Exacerbation? @ -No Poses a threat to life or bodily function? How? (Chest pain, [place], AR, pneumonia, PE, COPD, DKA, ARF, appy, cholecystitis, CVA, Diverticulitis, Homicidal, Suicidal, threat to staff... and all critical care pts) @ -No - Lab Data Lab Results 10/24/24 Range/Units 19:41 Group A Strep (PCR) NOT DETECTED (Not Detectd) Disposition Clinical Impression: Sore throat Disposition: HOME SELF-CARE Condition: Stable Instructions (If sedation given, give patient instructions): Pharyngitis (ED) Additional Instructions: Please do follow-up with your primary care physician in the next couple of days for recheck. Return for not tolerating fluids, difficulty breathing, fevers, increased pain, worsening or changing symptoms or other concerns. Prescription sent to pharmacy Prescriptions: Sucralfate [Carafate] 1 gm PO ACHS #300 ml Is patient prescribed a controlled substance at d/c from ED?: No Referrals: Flor Richards MD [Primary Care Provider] - 1-2 days Time of Disposition: 20:22
--- NOTE | 2024-10-24 19:47 | XR ---
EXAMINATION TYPE: XR soft tissue neck DATE OF EXAM: 10/24/2024 7:38 PM COMPARISON: None CLINICAL INDICATION: Male, 28 years old with history of pain; TECHNIQUE: The soft tissues of the neck were imaged in frontal and lateral views. FINDINGS: The prevertebral soft tissues are unremarkable. There is no evidence of mass effect or trac heal deviation. No acute osseous abnormality demonstrated. No evidence of subglottic narrowing. IMPRESSION: No significant abnormality identified within the soft tissues of the neck. [facility], , 10/24/2024 7:44 PM
[2024-10-24] MEDS: LIDOCAINE VISCOUS 2% 15 ML CUP PO ONE (20:56)
[2024-10-24] MEDS: DEXAMETHASONE SOD PHOSPHATE 10 MG/ML 1 ML VIAL IM STA (20:57)
[2024-10-24] MEDS: MAG HYDROX/AL HYDROX/SIMETH 30 ML CUP PO STA (20:57)
[2024-10-24 21:06] VITALS: BP 142/82; PULSE 52; RESP 18; TEMP 98.2
== END 2024-10-24 21:08 | disposition home or self-care (01) ==
LOC: EC 17:40
DX: J02.9 Acute pharyngitis, unspecified (principal)
CPT/HCPCS: 87651; 70360; 99283; 96372; J1100